=== PATIENT | female | born 1955 | race Caucasian/White ===

== ENCOUNTER 2023-11-29 23:41 | Emergency (ER) | payer MEDICARE, SELFPAY ==
[2023-11-29 23:46] VITALS: BP 157/99
[2023-11-30 01:46] VITALS: BP 153/88; BMI 18.9
--- NOTE | 2023-11-30 01:50 | ED.GENMED ---
History of Present Illness
General
Chief Complaint: Nose Bleed
Source: patient
Exam Limitations: none
Time Seen by Provider: 11/30/23 01:38
Travel History
Have you had any contact with someone who has COVID-19?: No
Do you have any symptoms of coronavirus? Fever > 100 degrees, chills, cough, shortness of breath, sore throat, loss of taste or smell, muscle aches, or headache?: No
History of Present Illness
History of Present Illness:
This is a 68 year old female that comes in with c/o nose bleed. States that she was getting ready for bed and she blow her nose. States that this was around 11:15pm and she just started with a nose bleed. States that it was just [place] and she spit
up a clot. States that a week ago she did have some congestion as she caught what her grandchildren had. Denies any fever, chills, nausea vomiting. headache, dizziness.
Past History
Past History
ED Past Medical History: Other (Crohn's disease, Bilateral hip core Decompression, Anemia, )
ED Past Surgical History: Bowel resection and Orthopedic (Right and left knee surgery. Right total knee replacement)
Social History
Tobacco: Non-smoker
Alcohol: None
Drug: None
Personal:
Living: with family
Review of Systems
Review of Systems
All Other Systems: ROS reviewed and negative except as documented in HPI and ROS
Constitutional: Reports no symptoms; Denies fever or chills
EENT: Reports other (Nasal bleeding)
Respiratory: Reports no symptoms; Denies cough
Cardiac: Reports no symptoms; Denies chest pain
ABD/GI: Reports diarrhea (Chronic); Denies abdominal pain, nausea or vomiting
: Reports no symptoms; Denies dysuria, frequency or urgency
Musculoskeletal: Reports no symptoms
Skin: Reports no symptoms
Neurological: Reports no symptoms; Denies dizzy or headache
Psychiatric: Reports no symptoms
Phy Exam
General Physical Exam
General Presentation: no apparent distress
General age: appears stated age
General Skin: warm and dry
General Habitus: normal
General Mental: alert
General Hydration: appears well hydrated
ENT Exam
ENT Exam: TM's normal, pharynx normal, neck supple and other (at this time no nasal bleeding noted. Appears that there was nasal bleeding from the left nares. )
Eye Exam
Eye Exam: EOMI
Cardiovascular Exam
Cardiovascular Exam: regular rate/rhythm, no edema and normal peripheral pulses
Pulmonary Exam
Pulmonary Exam: lungs clear, no respiratory distress, no rales, chest non tender, no crackles, no rhonchi, no wheezing and no cough
Musculoskeletal Exam
Musculoskeletal Exam: full ROM and no edema
Skin Exam
Skin Exam: normal color, warm/dry, no rash and no petechia
Psychiatric Exam
Psychiatric Exam: normal mood/affect
Course
Vital Signs
Initial and Last Documented VS:
Initial Vital Signs
Temp Pulse Resp BP Pulse Ox
98.3 F 96 20 157/99 96
11/29/23 23:46 11/29/23 23:46 11/29/23 23:46 11/29/23 23:46 11/29/23 23:46
Last Documented Vital Signs
Temp Pulse Resp BP Pulse Ox
98.3 F 88 16 153/88 96
11/29/23 23:46 11/30/23 01:46 11/30/23 01:46 11/30/23 01:46 11/30/23 01:46
MDM/Problems Addressed
Differential Diagnosis Includes:
Nasal bleeding,
MDM/Problems Addressed:
This is a 68 year old female that comes in with c/o nose bleed. States that she was getting ready for bed and blow her nose and her nose just started to bleed. States that she felt at first it was form te right side and then felt it was coming from
both.
At this time the nasal clip was removed and no bleeding noted at this time. Will watch patient and if stays stopped will discharge patient home
back into see patient. Patient has had no further nasal bleeding and there is nothing going down her throat. Explained to patient that she can use a little Vaseline on a Q-tip to help keep the nasal passages moist. Patient can follow up with the
family doctor. Return with any concerns.
Chronic conditions affecting care:
NA
Acute Exacerbation and/or Progression of Chronic Illness:
NA
*Pulse Oximetry
Patient hypoxic: no
*EKG
Interpreted by ED Provider?: NA
Rate: EKG- N/A
*It Software Developer Interpretation
Rate: It Software Developer- N/A
*Critical Care Note
Total Time (30-74mins, 75-104mins- exclusive of procedures): Not Applicable
ED Attending Note
-
Portions of this chart may have been created with voice recognition software.� Occasional wrong word or��sound alike� substitutions may have occurred due to the inherent limitations of voice recognition software.
Discharge Plan
Departure
Patient Disposition: Home (Routine Discharge)
Date of Disposition: 11/30/23
Time of Disposition: 02:23
Patient with high blood pressure during this ER visit?: Yes
Condition: Good
Covid-19: Not Applicable
Discharge Problem:
Nasal bleeding
Instructions: Nosebleeds (DC), BLOOD PRESSURE
Prescriptions:
No Action
certolizumab pegol [Cimzia] 200 MG/ML syringe kit
400 mg SC MONTHLY
multivitamin with folic acid [Tab-A-Reina] 1 TABLET tablet
1 tab PO DAILY
Vitamin B12 1,000 MCG Injection
1,000 mcg IM MONTHLY
Vitamin D2 50,000 UNITS Tab
50,000 units PO WEEKLY
acetaminophen 325 MG tablet
650 mg PO Q4H PRN (Reason: mild pain) 0RF
aspirin 325 MG tablet,delayed release (DR/EC)
325 mg PO DAILY 0RF
hydrocodone-acetaminophen 1 TABLET tablet
1 - 2 tab PO Q4HPRN PRN (Reason: moderate-severe pain) Qty: 60 0RF
ondansetron HCl 4 MG tablet
4 mg PO Q8HPRN PRN (Reason: nausea) Qty: 10 0RF
polyethylene glycol 3350 17 GRAMS powder in packet
17 grams PO DAILYPRN PRN (Reason: constipation) 0RF
azithromycin 250 MG tablet
250 mg PO DAILY Qty: 4 0RF
Activity Restrictions/Additional Instructions:
As discussed, your nasal bleeding has stopped and there is no obvious site noted. Please do not blow your nose tonight as this will dislodge any clots. You may use a Little Vaseline on a Q-tip to help keep the nasal passages moist. You may also use
Saline nasal spray to help with moistening the nasal passages. Follow up with the family doctor for recheck. Please Pinch the nostrils for any further bleeding. IF YOU HAVE INCREASED BLEEDING OR YOU HAVE ANY OTHER CONCERNS PLEASE RETURN TO THE
EMERGENCY ROOM.
Interventions
Interventions:
*Risk Screen - Suicide Last Done: 11/29/23 23:46
*General Assessment Last Done: 11/29/23 23:46
*Neglect/Abuse Screening Last Done: 11/29/23 23:46
ED- Fall Risk Assessment Last Done: 11/29/23 23:46
*ED COVID-19 Vaccine History Last Done: 11/29/23 23:46
ED-EENT Assessment Last Done: 11/30/23 01:46
Discharge Date and Time
Print Language: MALAYSIAN
== END 2023-11-30 02:42 | disposition home or self-care (01) ==
LOC: EMR 23:41
PROVIDERS: EMERGENCY PHYSICIAN Emergency Medicine; FAMILY PHYSICIAN Internal Medicine
DX: R04.0 Epistaxis (principal); R19.7 Diarrhea, unspecified; R03.0 Elevated blood-pressure reading, without diagnosis of hypertension; K50.90 Crohn's disease, unspecified, without complications; D64.9 Anemia, unspecified; Z96.651 Presence of right artificial knee joint; Z88.5 Allergy status to narcotic agent; Z88.2 Allergy status to sulfonamides; Z79.82 Long term (current) use of aspirin
CPT/HCPCS: 99282

== ENCOUNTER 2023-12-01 23:35 | Inpatient (IN) | payer MEDICARE, SELFPAY ==
[2023-12-01 18:16] VITALS: BP 148/87
[2023-12-01 18:38] LABS: % Basophils 0.7 % (0-2); % Eosinophils 0.1 % (0-6); % Immature Granulocytes 0.4 % (0-0.5); % Lymphocytes 12.4 % (20.5-51.1); % Monocytes 4.1 % (1.7-9.3); % Neutrophils 82.3 % (42.2-75.2); Absolute Basophils 0.1 10^3/uL (0-0.2); Absolute Lymphocytes 0.9 10^3/uL (1.2-3.4); Absolute Monocytes 0.3 10^3/uL (0.1-0.6); Absolute Neutrophils 5.9 10^3/uL (1.4-6.5); Hematocrit 34.3 % (37.0-47.0); Hemoglobin 11.8 g/dL (12.0-16.0); Mean Corp Hgb Conc. 34.4 g/dL (33.0-37.0); Mean Corpuscular Hgb 29.5 pg (27.0-31.0); Mean Corpuscular Volume 85.8 fL (81.0-99.0); Nucleated Red Blood Cells % 0 %; Platelet Count 213 10^3/uL (130-400); Red Cell Dist. Width 13.2 % (11.5-14.5); White Blood Cell Count 7.1 10^3/uL (4.8-10.8)
[2023-12-01 18:57] LABS: ALT (SGPT) 601 U/L (0-35); AST (SGOT) 736 U/L (14-36); Alkaline Phosphatase 165 U/L (38-126); Blood Urea Nitrogen 8 mg/dl (7-17); Calcium 9.6 mg/dl (8.4-10.2); Carbon Dioxide 29 mmol/L (22-30); Chloride 107 mmol/L (98-107); Glucose 102 mg/dl (70-99); Potassium 3.7 mmol/L (3.5-5.1); Sodium 140 mmol/L (135-145); Total Bilirubin 4.5 mg/dl (0.2-1.3); Total Protein 7.2 g/dl (6.3-8.2); eGFR > 60.00
[2023-12-01 19:12] LABS: Lipase > 4000 U/L (23-300)
--- NOTE | 2023-12-01 20:57 | ED.GENMED ---
History of Present Illness
General
Chief Complaint: Abdominal Pain
Source: patient
Time Seen by Provider: 12/01/23 20:43
Travel History
Have you had any contact with someone who has COVID-19?: No
Do you have any symptoms of coronavirus? Fever > 100 degrees, chills, cough, shortness of breath, sore throat, loss of taste or smell, muscle aches, or headache?: No
History of Present Illness
History of Present Illness:
Pt presents to the emergency room complaining of abdominal pain and nausea. Pain began yesterday and has been persistent. She has not vomited. Denies any diarrhea. Patient has a history of Crohn's disease and she did contact her GI doctor who
referred her to the emergency room. He was concerned that she may be having an exacerbation of Crohn's. Patient has had abdominal surgery and bowel resection due to Crohn's. She currently takes Stelara. She is not on any oral steroids. She
feels her pain is different than what she is experienced with Crohn's in the past. Today's pain is mostly in the upper abdomen. Does radiate to the back. She denies alcohol use.
Past History
Past History
ED Past Medical History: Other (Crohn's disease, Bilateral hip core Decompression, Anemia, )
ED Past Surgical History: Bowel resection and Orthopedic (Right and left knee surgery. Right total knee replacement)
Social History
Tobacco: Non-smoker
Alcohol: None
Drug: None
Personal:
Living: with family
Phy Exam
Physical Exam
Physical Exam:
General: Awake, Alert, Oriented X3. No acute distress.
Vitals: unremarkable
Head: Atraumatic
Eyes: Pupils equal, EOMI
Throat: Airway intact, no exudates, dry mucosa
Neck: Trachea midline
Lungs: Clear and equal b/l
Heart: Regular rate, no murmurs
Abd: Soft, tender to palpation epigastric and right upper quadrant, No pulsatile mass
Neuro: Nonfocal
Skin: Warm, dry, no rash
Extremities: pulses equal b/l, no edema
Course
Orders/Labs/Results
Orders:
Orders
12/01/23 18:20
Electrocardiogram (*1) Urgent
Reason for Study: Abdominal Pain
EKG- Treatment ONCE
12/01/23 18:32
Complete Blood Count/With Diff Urgent
Comprehensive Metabolic Panel Urgent
Lipase Urgent
12/01/23 20:51
0.9% Sodium Chloride 1000 ml [Nss] 1,000 ml IV BOLUS
Ketorolac [Toradol] 15 mg IV NOW STA
US Abdomen Complete/Upper Urgent
Comment:
Reason For Exam: ruq/epigastric abd pain, elevated lfts.
12/01/23 22:38
CefTRIAXone [Rocephin] 1,000 mg IV NOW STA
12/01/23 23:04
Admit/Transfer Patient As Directed
Co-Sign Provider:
Level of Care: Inpatient admission
Assign to:: Medical/Surgical
Physician / Group: [email or web address]
Diagnosis: acute Gallstone pancreatitis
Reason for Hospitalization: acute Gallstone pancreatitis
Expected length of stay greater than two midnights?: Yes
ELOS- Estimated Length of Stay in days: 3
I certify the patient meets the requirements for IP care: Yes
12/01/23 23:07
Code Status As Directed
Resuscitation Status: Full Code
12/01/23 23:53
HYDROmorphone [Dilaudid] 0.5 mg IV Q4HPRN PRN
Lactated Ringers [Lr] 1,000 ml IV 250 mls/hr
Ondansetron Injectable [Zofran] 4 mg IV Q6HPRN PRN
12/01/23 23:53
Consult Notification Routine
Specialty to Notify: Gastroenterology
Consult Notification Routine
Specialty to Notify: Gastroenterology
GASTROINTESTINAL CONSULT Routine
Consulting Provider: Sun Lockett
Was physician already notified: No
Reason for consult: acute Gallstone pancreatitis, mild CBD dilatation
Activity As Directed
Activity Level: With Assistance
Intake/ Output As Directed
Frequency: Per unit guidelines
Vital Signs As Directed
Frequency: Per unit guidelines
Weight As Directed
Frequency: Daily
DX Deep Vein Thrombosis Video Routine
12/02/23 Breakfast
NPO
Allow oral meds: No
Allow clear liquids: No
NPO with Ice Chips: Yes
Complete Blood Count/No Diff IN AM
Comprehensive Metabolic Panel IN AM
Lipase IN AM
Mrcp Without MR [MR Mrcp Without] IN AM
Comment: include MRI of abdomen
Reason For Exam: Acute Gallstone pancreatitis,Mild CBD diltation
Recent pill cam endoscopy?: No
12/02/23 08:00
cycloSPORINE [Restasis 0.05% Ophthalmic Emulsion] 1 drops BOTH EYES BID
12/02/23 18:00
Enoxaparin Sodium [Lovenox] 40 mg SC QPM
12/03/23 06:00
Comprehensive Metabolic Panel IN AM
Lipase IN AM
12/04/23 06:00
Comprehensive Metabolic Panel IN AM
Lipase IN AM
Abnormal Lab Results
12/01/23
18:32
RBC 4.00 L 10^6/uL
(4.20-5.40)
Hgb 11.8 L g/dL
(12.0-16.0)
Hct 34.3 L %
(37.0-47.0)
Absolute Lymphs (auto) 0.9 L 10^3/uL
(1.2-3.4)
Neutrophils % 82.3 H %
(42.2-75.2)
Lymphocytes % 12.4 L %
(20.5-51.1)
Glucose 102 H mg/dl
(70-99)
Total Bilirubin 4.5 H mg/dl
(0.2-1.3)
AST 736 H* U/L
(14-36)
ALT 601 H* U/L
(0-35)
Alkaline Phosphatase 165 H U/L
(38-126)
Lipase > 4000 H* U/L
(23-300)
12/01/23 18:32
12/01/23 18:32
Vital Signs
Initial and Last Documented VS:
Initial Vital Signs
Temp Pulse Resp BP Pulse Ox
98.8 F 87 20 148/87 97
12/01/23 18:16 12/01/23 18:16 12/01/23 18:16 12/01/23 18:16 12/01/23 18:16
Last Documented Vital Signs
Temp Pulse Resp BP Pulse Ox
99.1 F 86 18 151/93 95
12/01/23 22:40 12/01/23 22:40 12/01/23 22:40 12/01/23 22:40 12/01/23 22:40
MDM/Problems Addressed
Differential Diagnosis Includes:
Acute pancreatitis, cholecystitis, colitis, intra-abdominal abscess
MDM/Problems Addressed:
Patient presents with abdominal pain. Labs show elevated lipase and LFTs. Suspect gallstone pancreatitis.
Ultrasound shows stones in the gallbladder with some mild gallbladder wall thickening. Common bile duct is larger than expected. Patient will require hospitalization for suspected choledocholithiasis. Will keep NPO. Dose of ceftriaxone provided.
Chronic conditions affecting care: Other (Crohn's disease)
*Radiology
Radiology exam reviewed: radiology read reviewed
*Pulse Oximetry
Patient hypoxic: no
*EKG
Interpreted by ED Provider?: Yes
Interpretation: normal
Heart Rate: 82
Rate: normal
Rhythm: sinus
[place]: normal axis
Interval: normal interval
QRS Pattern: normal QRS
Ischemia: no ischemia
*Critical Care Note
Total Time (30-74mins, 75-104mins- exclusive of procedures): Not Applicable
Patient Management
Social determinants of health affecting care: Strong social support
ED Attending Note
-
Portions of this chart may have been created with voice recognition software.� Occasional wrong word or��sound alike� substitutions may have occurred due to the inherent limitations of voice recognition software.
Discharge Plan
Departure
Patient Disposition: Admit
Date of Disposition: 12/01/23
Time of Disposition: 22:40
Admit to: Med/Surg
Presentation/result/management discussed w/ accepting MD/DO: Hospitalist
Condition: Fair
Discharge Problem:
Acute pancreatitis, Cholelithiasis
Interventions
Interventions:
*Risk Screen - Suicide Last Done: 12/01/23 18:16
*General Assessment Last Done: 12/01/23 18:16
*Neglect/Abuse Screening Last Done: 12/01/23 18:16
ED- Fall Risk Assessment Last Done: 12/01/23 21:40
*ED COVID-19 Vaccine History Last Done: 12/01/23 23:26
PM-Mjecmz-Fahphrvtbk Assessment Last Done: 12/01/23 21:40
[2023-12-01] MEDS: TORADOL 15 MG IV (21:24)
[2023-12-01] MEDS: NSS 1000 IV (21:25)
[2023-12-01 21:39] VITALS: BMI 20.5
[2023-12-01 22:40] VITALS: BP 151/93
--- NOTE | 2023-12-01 22:56 | HPS.HSE ---
Family Physician
-
Family Physician: Lauren Rush
Chief Complaint
-
abdominal pain
History of Present Illness
68F HX Crohn's disease seen at ER for abdomina pain
Abdominal pain mostly in upper abdomen with radition to the back
Pain is different from prior Crohn flare
Acute onset since yesterday
Associated with N/V
No relieving or exacerbating factors
Prior HX pancreatitis once associated with TPN
HX Bowel resection due to Crohn dz
Denied ETOH exposure
Medical History
Past Medical History
Past Medical History: Reports Other
Additional Past Medical History:
Crohn's disease,
Bilateral hip core Decompression
Anemia,
Past Surgical History: Reports Orthopedic (Right and left knee surgery. Right total knee replacement)
Additional Past Surgical History:
HX Bowel resection due to Crohn dz
Social History
Tobacco: Non-smoker
Alcohol: None
Drug: None
Personal:
Living: With Family
Family History
Family History: Not pertinent
Allergies / Home Medications
Allergies reflects when Allergies were last updated in [facility].
Home Medications with original date entered in [facility]
Allergy/Medication List:
Allergies
Allergy/AdvReac Type Severity Reaction Status Date / Time
Sulfa (Sulfonamide Allergy Unknown Verified 12/01/23 18:19
Antibiotics)
sulfasalazine Allergy hemolyzed Verified 12/01/23 18:19
blood
codeine AdvReac Severe Verified 12/01/23 18:19
nausea,
vomiting
Home Medications
multivitamin with folic acid 400 mcg tablet (Tab-A-Reina) 1 tab PO DAILY PRN supplement 06/30/17
ascorbic acid (vitamin C) 500 mg chewable tablet (Vitamin C) 500 mg PO DAILY PRN supplement 12/01/23
biotin 1,000 mcg chewable tablet 1,000 mcg PO DAILY PRN supplement 12/01/23
cyanocobalamin (vitamin B-12) 1,000 mcg/mL injection solution 1,000 mcg SC Q2W 12/01/23
cyclosporine 0.05 % eye drops in a dropperette 1 drp BOTH EYES BID 12/01/23
ustekinumab 45 mg/0.5 mL subcutaneous solution (Stelara) 45 mg SC [id number] 12/01/23
Review of Systems
-
Constitutional: Reports No Symptoms
EENT: Reports No Symptoms
Respiratory: Reports No Symptoms
Cardiac: Reports No Symptoms
Abdomen/GI: Reports See HPI, Abdominal Pain, Nausea and Vomiting; Denies Diarrhea
: Reports No Symptoms
Musculoskeletal: Reports No Symptoms
Skin: Reports No Symptoms
Neurological: Reports No Symptoms
Endocrine: Reports No Symptoms
Hematologic/Lymphatic: Reports No Symptoms
Psych: Reports No Symptoms
Physical Exam
Vital Signs
Vital Signs
Temp Pulse Resp BP Pulse Ox
99.1 F 86 18 151/93 95
12/01/23 22:40 12/01/23 22:40 12/01/23 22:40 12/01/23 22:40 12/01/23 22:40
Physical Exam
General: No Apparent Distress and Comfortable
HEENT: NormoCephalic, Moist mucous membranes and Atraumatic
Respiratory: Clear
Cardiac: S1/S2 and Regular Rhythm; No Tachycardia or Murmur
Breast: Deferred by me
GI: Soft, Normal Bowel Sounds and Tender (at epigastriun and RUQ abdomen )
Rectal: Deferred by Provider
Genito-urinary: Deferred by me
Musculoskeletal: No Edema
Skin: Warm and Dry
Neuro: AO x 3
Psych: Calm
Laboratory Results
-
12/01/23 18:32
12/01/23 18:32
Laboratory Results
Total Bilirubin 4.5 mg/dl (0.2-1.3) H 12/01/23 18:32
AST 736 U/L (14-36) H* 12/01/23 18:32
ALT 601 U/L (0-35) H* 12/01/23 18:32
Alkaline Phosphatase 165 U/L (38-126) H 12/01/23 18:32
Lipase > 4000 U/L (23-300) H* 12/01/23 18:32
Data Reviewed
-
Ultrasound: Report Reviewed by me
Lab Data: Labs Reviewed by me
Impression/Plan
-
Reviewed VS: afebrile, unremarkable
Data
WCC 7.1
Hgb 11.8 - stable around 11s
nl BMP
TB 4.5
AST 736
ALT 601
AKP 165
Lipase > 4000
US Abdomen Complete/Upper
- Cholelithiasis.
- The GB wall is mildly thickened and the patient has a mildly positive sonographic Goodrich's sign, findings suggestive of acute cholecystitis.
- Moderate diffuse intrahepatic bile duct dilation. The common bile duct is mildly dilated. No sonographic evidence for bile duct calculus. If further imaging evaluation is desired, consideration for MRI of the abdomen/MRCP.
- Somewhat limited visualization of the liver. No evidence of a focal hepatic lesion.
EKG report
NORMAL SINUS RHYTHM
NORMAL ECG
WHEN COMPARED WITH ECG OF 14-NOV-2018 13:14,
NO SIGNIFICANT CHANGE WAS FOUND
ASSESSMENT & PLAN
Acute Gallstone pancreatitis
Sono suggestive of acute cholecystitis.
Mild CBD dictation and diffuse intrahepatic bile duct dilation
Cholelithiasis
Prior HX pancreatitis once associated with TPN
- Afebrile , nl WCC
- s/p IV CFTZ at ER - will hold off ABx till further eval by GI in AM
- Elevate TB , Elevated Transaminitis
- Lipase > 4000
- NPO and LR IVF
- IV Dilaudid PRN
- Trend WCC, LFTs and Lipase
- MRCP in AM
- GI consult
HX Crohn dz
Currently takes Stelara
DVT Px: SCD
Code: Full
IP MS
[2023-12-01] MEDS: ROCEPHIN 1000 MG IV (23:00)
[2023-12-02] VITALS (11 sets, daily range): BP systolic 136–178; BP diastolic 82–93
[2023-12-02] MEDS: LR 1000 IV ×4 (00:35→16:56)
[2023-12-02 05:16] LABS: Hematocrit 28.9 % (37.0-47.0); Hemoglobin 9.8 g/dL (12.0-16.0); Mean Corp Hgb Conc. 33.9 g/dL (33.0-37.0); Mean Corpuscular Hgb 30.2 pg (27.0-31.0); Mean Corpuscular Volume 88.9 fL (81.0-99.0); Mean Platelet Volume 9.7 fL (7.4-10.4); Platelet Count 193 10^3/uL (130-400); Red Blood Cell Count 3.25 10^6/uL (4.20-5.40); Red Cell Dist. Width 13.3 % (11.5-14.5)
[2023-12-02 05:48] LABS: ALT (SGPT) 386 U/L (0-35); AST (SGOT) 358 U/L (14-36); Alkaline Phosphatase 170 U/L (38-126); Blood Urea Nitrogen 9 mg/dl (7-17); Calcium 8.9 mg/dl (8.4-10.2); Carbon Dioxide 23 mmol/L (22-30); Chloride 109 mmol/L (98-107); Estimated Creatinine Clearance 69 ml/min; Glucose 59 mg/dl (70-99); Potassium 3.5 mmol/L (3.5-5.1); Sodium 138 mmol/L (135-145); Total Bilirubin 3.7 mg/dl (0.2-1.3); Total Protein 5.7 g/dl (6.3-8.2); eGFR > 60.00
[2023-12-02 06:02] LABS: Lipase 2346 U/L (23-300)
--- NOTE | 2023-12-02 07:49 | CON.GI ---
Addendum entered and electronically signed by Sun Lockett MD 12/02/23 15:01:
I saw and examined the patient.
The PUBLIC HEALTH WORKER or PA's note was reviewed and I agree with the note.
Comment: 68-year-old female past medical history Crohn's disease status post surgery on Stelara follows at [facility] here today with abdominal pain found to have gallstone pancreatitis and acute cholecystitis. Pain is improved already last time
needed pain meds was 6 AM. Underwent MRI reviewed which showed choledocholithiasis in addition to cholelithiasis and acute cholecystitis. Plan for ERCP today. Discussed with patient risk, alternatives, benefits including but not limited to
bleeding, infection, perforation, pancreatitis. Discussed with the ERCP team plan ERCP today. Continue antibiotics for acute cholecystitis. Appreciate surgical input. Further recommendations pending ERCP. With pancreatitis, recommend IV fluids,
monitor I's and O's. Of note, patient at increased risk of gallstones given her history of Crohn's and surgeries.
Addendum entered and electronically signed by Elaine Kimbrough NP 12/02/23 12:45:
ADDEDNUM: Gallstone pancreatitis 2/2 choledocholithiasis. MRI/MCRP showing +choledocho and acute cholecystitis. Reviewed with Dr. Lockett, to arrange for ERCP today v tomorrow.
Original Note:
Consultation
-
Date/Time Consultation Requested: 12/01/23 @ 23:53
Date/Time Consultation Performed: 12/02/23 @ 08:15
Requesting Provider: Dr. Shelby
Performing Provider: YAYA Mckeon; Dr. Janis Lockett
Reason for Consultation: acute Gallstone pancreatitis, mild CBD dilatation
Medical History
Chief Complaint / HPI
Chief Complaint: abdominal pain
History of Present Illness:
The patient is a 68-year-old female with a past medical history significant for Crohn's disease on Stelara with hx of multiple small bowel obstructions and small bowel resections, colon resection, history of pancreatitis secondary to TPN, chronic
anemia, avascular necrosis with core decompression, who presented to the emergency room with complaints of abdominal pain. We are being asked to evaluate for gallstone pancreatitis with biliary ductal dilation. The patient reports that she
developed abdominal pain on Thursday in the late morning time. She notes she has had similar pain in the past times of the past year, but each time the pain would dissipate on its own. She notes that over the summer she had been diagnosed with
SIBO and taken Xifaxan but stopped after several days that she had the similar pain. She notes this time that the pain was constant and did not resolve. She admits to discomfort in the mid upper abdomen. She also admits to associated nausea
without vomiting. She otherwise denies any fevers, chills, chest pain, shortness of breath, melena, hematochezia, hematemesis, unintentional weight loss, or loss of appetite. She does have chronic diarrhea with 2 bowel movements daily secondary to
multiple bowel resections from her Crohn's disease. She notes she was diagnosed at age 16, currently is on Stelara which she did miss her dose yesterday due to feeling unwell. She is followed with Dr. Garcia at [facility], [place] but is looking for a new
GI physician. She had previously seen him in the office and he had ordered Questran but she did not start this. She denies prior history of gallbladder disease. She denies any history of liver disease. She does note that she did have
pancreatitis once in 1990 after being on TPN. She reports her current symptoms are essentially controlled on Stelara. Her last bowel surgery was in 2017. She denies any recent hospitalizations, recent steroids, or recent surgeries. She notes
that she is intolerant of steroids due to history of avascular necrosis with core decompression. Her last colonoscopy was about 4 years ago. She denies any family history of GI cancers or disorders. Ultrasound imaging was done showing concern for
acute cholecystitis with cholelithiasis and moderate diffuse intrahepatic biliary ductal dilation and mild dilation of the common bile duct, concerning for choledocholithiasis. Routine labs showed a hemoglobin 11.8, WBC 7.1, total bilirubin 4.5,
AST 736, ALT 61, alk phos 165, lipase greater than 4000, BUN 8, creatinine 0.7, potassium 3.7, sodium 140. She was started on IV fluids, made n.p.o., admitted for further evaluation by GI. MRI with MRCP is pending this morning.
Past Medical History
Past Medical History: Other (Crohn's disease on Stelara, chronic anemia, avascular necrosis with core decompression, history of small bowel obstruction with small bowel resection)
Past Surgical History: Bowel Resection (Multiple small bowel resections, colon resections secondary to Crohn's disease) and Orthopedic (Bilateral knee arthroscopy, right total knee replacement)
Social History
Tobacco: Non-Smoker
Alcohol: None
Drug: None
Personal:
Living: With Family
Family History
Family History: Reviewed & Not Pertinent
Allergies / Home Medications
Allergy/AdvReac Type Severity Reaction Status Date / Time
Sulfa (Sulfonamide Allergy Unknown Verified 12/01/23 18:19
Antibiotics)
sulfasalazine Allergy hemolyzed Verified 12/01/23 18:19
blood
codeine AdvReac Severe Verified 12/01/23 18:19
nausea,
vomiting
�Medication �Instructions �Recorded
multivitamin with folic acid 400 1 tab PO DAILY PRN supplement 06/30/17
mcg tablet (Tab-A-Reina)
ascorbic acid (vitamin C) 500 mg 500 mg PO DAILY PRN supplement 12/01/23
chewable tablet (Vitamin C)
biotin 1,000 mcg chewable tablet 1,000 mcg PO DAILY PRN supplement 12/01/23
cyanocobalamin (vitamin B-12) 1,000 mcg SC Q2W 12/01/23
1,000 mcg/mL injection solution
cyclosporine 0.05 % eye drops in a 1 drp BOTH EYES BID 12/01/23
dropperette
ustekinumab 45 mg/0.5 mL 45 mg SC [id number] 12/01/23
subcutaneous solution (Stelara)
Review of Systems
-
History Source: Patient
Constitutional: Reports No Symptoms
Respiratory: Reports No Symptoms
Cardiac: Reports No Symptoms
Abdomen/GI: Reports Abdominal Pain, Nausea and Diarrhea (Chronic)
: Reports No Symptoms
Musculoskeletal: Reports No Symptoms
Skin: Reports No Symptoms
Neurological: Reports No Symptoms
Vital Signs
Temp Pulse Resp BP Pulse Ox
99.1 F 86 18 151/93 95
12/01/23 22:40 12/01/23 22:40 12/01/23 22:40 12/01/23 22:40 12/01/23 22:40
Physical Exam
Exam
General: Well Developed, Well Nourished, No Apparent Distress and Other (Thin appearing female)
HEENT: Normocephalic, Anicteric and Atraumatic
Respiratory: Clear
Cardiac: S1/S2 and Regular Rhythm
GI: Soft, Non Distended, Normal Bowel Sounds and Tender (Minimally tender to the mid upper abdomen)
Rectal: Deferred by Provider
Musculoskeletal: No Edema
Skin: Warm and Dry
Neuro: Awake, Alert and Oriented
Psych: Calm
Results
WBC 6.0 10^3/uL (4.8-10.8) 12/02/23 05:10
Hgb 9.8 g/dL (12.0-16.0) L 12/02/23 05:10
Hct 28.9 % (37.0-47.0) L 12/02/23 05:10
MCV 88.9 fL (81.0-99.0) 12/02/23 05:10
Plt Count 193 10^3/uL (130-400) 12/02/23 05:10
Absolute Neuts (auto) 5.9 10^3/uL (1.4-6.5) 12/01/23 18:32
Sodium 138 mmol/L (135-145) 12/02/23 05:10
Potassium 3.5 mmol/L (3.5-5.1) 12/02/23 05:10
Chloride 109 mmol/L (98-107) H 12/02/23 05:10
Carbon Dioxide 23 mmol/L (22-30) 12/02/23 05:10
BUN 9 mg/dl (7-17) 12/02/23 05:10
Creatinine 0.5 mg/dL (0.6-1.0) L 12/02/23 05:10
Calcium 8.9 mg/dl (8.4-10.2) 12/02/23 05:10
Total Bilirubin 3.7 mg/dl (0.2-1.3) H 12/02/23 05:10
AST 358 U/L (14-36) H 12/02/23 05:10
ALT 386 U/L (0-35) H 12/02/23 05:10
Alkaline Phosphatase 170 U/L (38-126) H 12/02/23 05:10
Lipase 2346 U/L (23-300) H* 12/02/23 05:10
Diagnostic Image Results:
12/02/2023 US abdomen: IMPRESSION: 'Cholelithiasis. The gallbladder wall is mildly thickened and the patient has a mildly positive sonographic Goodrich's sign, findings suggestive of acute cholecystitis. Moderate diffuse intrahepatic bile duct dilation.
The common bile duct is mildly dilated. No sonographic evidence for bile duct calculus. If further imaging evaluation is desired, consideration for MRI of the abdomen/MRCP. Somewhat limited visualization of the liver. No evidence of a focal hepatic
lesion. '
Prior GI Procedures:
EGD: none on file
Colonoscopy: About [address] [facility]
Assessment / Plan
-
The patient is a 68-year-old female with a past medical history significant for Crohn's disease on Stelara with hx of multiple small bowel obstructions and small bowel resections, colon resection, history of pancreatitis secondary to TPN, chronic
anemia, avascular necrosis with core decompression, who presented to the emergency room with complaints of abdominal pain. We are being asked to evaluate for gallstone pancreatitis with biliary ductal dilation. She notes several episodes of
similar abdominal pain over the past year, but worsening and not resolving. Found to have elevated LFTs with a total bilirubin 4.5, AST 736, ALT 61, alk phos 165, and lipase greater than 4000 consistent with pancreatitis. Ultrasound imaging did
reveal gallstones with intrahepatic biliary ductal dilation along with mild dilation of the common bile duct concerning for choledocholithiasis. Imaging also suggestive of acute cholecystitis. Currently her pain has improved. She was started on
IV fluids and IV Zosyn. Pending MRI with MRCP this morning.
Problem list:
-Upper abdominal pain
-Ultrasound imaging showing gallstones, biliary ductal dilation of IHD and CBD, ?Acute cholecystitis
-Abnormal LFTs
-History of Crohn's disease on Stelara, with multiple small bowel and colonic resections, dx age 16
-History of pancreatitis secondary to TPN
Other pertinent medical history:
-Avascular necrosis with core decompression
-Chronic anemia
Recommendations:
-Etiology of abdominal pain and abnormal LFTs likely secondary to choledocholithiasis versus acute cholecystitis versus other.
-Agree with MRI with MRCP for further evaluation. If positive will need ERCP for stone extraction.
-Continue n.p.o. pending MRI
-IV fluids with LR at 150 cc/h
-PRN analgesics
-Eventual general surgery evaluation for cholecystectomy
-Trend LFTs
-Antibiotics initiated by hospitalist with Zosyn
-Will review with Dr. Lockett on when would be appropriate for her to continue her Stelara. Noted she is intolerant of steroids due to hx avascular necrosis.
-Will follow
-
-
Thank you for consultation and allowing me to participate in the patient's care. Please call the international controller GI physician during the after hours with any questions or concerns.
--- NOTE | 2023-12-02 08:03 | W.PN.HOSP.TC ---
Today's Communication/Plan
-
NPO. IV fluids. IV antibiotics. GI and surgery consulted.
Assessment / Plan
Assessment / Plan
Physical exam:
General: Acutely ill
HEENT: Normocephalic, Atraumatic and Moist Mucous Membranes
Respiratory: Clear to Auscultation; Negative Wheezes, Rales or Rhonchi
Cardiac: Regular Rhythm and S1/S2
GI: Soft, Tender in epigastric and right upper quadrant area and Nondistended
Musculoskeletal: No Clubbing, No Cyanosis and No Edema
Neuro: Awake, Alert and Oriented
Psych: Calm
A/P:
Acute gallstone pancreatitis:
-N.p.o.
-IV fluids
-Trend LFTs and lipase
-GI consult
-Reviewed abdominal ultrasound
Cholelithiasis and concerns for choledocholithiasis and cholecystitis:
-Will start on IV antibiotics, IV Zosyn
-Plan for MRCP today
-Surgery consult
-Pain control
-IV fluids
-Keep n.p.o.
History of Crohn's:
-Patient on Stelara as outpatient
DVT prophylaxis
Lovenox SQ
CODE STATUS
Full code
Total time spent on today's encounter was 52 minutes which included time spent in counseling the patient/family regarding diagnosis and treatment plan as listed above, goals of care, and symptom management. Case was discussed with nursing staff,
specialists, and care coordinators/case management. All labs and imaging personally reviewed by me. Remainder the time spent in detailed review of previous records, lab data, imaging, and other medical provider documentation.
Anticipated Discharge: > 48 hours
Subjective/Interval History
-
Date of Service: December 02, 2023
Patient still complains of abdominal pain although overall much better than before. Denies any nausea or vomiting.
Objective Data
-
Labs:
Laboratory Results
12/02/23
05:10
WBC 6.0
Hgb 9.8 L
Hct 28.9 L
Plt Count 193
Sodium 138
Potassium 3.5
Chloride 109 H
Carbon Dioxide 23
BUN 9
Creatinine 0.5 L
Glucose 59 L
Calcium 8.9
Total Bilirubin 3.7 H
AST 358 H
ALT 386 H
Alkaline Phosphatase 170 H
Vital Signs:
Vital Signs
Temp Pulse Resp BP Pulse Ox
99.1 F 86 18 151/93 95
12/01/23 22:40 12/01/23 22:40 12/01/23 22:40 12/01/23 22:40 12/01/23 22:40
Review of Systems
-
All other systems: Reviewed and negative
[2023-12-02] MEDS: RESTASIS 0.05% OPHTHALMIC EMULSION 1 DROPS BOTH EYES ×2 (09:37→21:35)
[2023-12-02] MEDS: ZOSYN 50 IV ×3 (10:33→21:34)
--- NOTE | 2023-12-02 11:44 | CON.GS ---
Consultation
-
Requesting Provider: Elsa
Performing Provider: Joanna
Reason for Consultation: Biliary pancreatitis
Medical History
-
Chief Complaint: Abd pain
History of Present Illness:
68F with acute onset epigastric pain that began for the past two days. Endorses mild nausea, denies vomiting, denies f/c, denies changes to stool/urine. Pain is better today than yesterday. Pain feels diffrent than her Crohns pain. She takes
stellara for crohns.
Past Medical History
Past Medical History: Other (Crohn's disease on Stelara, chronic anemia, avascular necrosis with core decompression)
Past Surgical History: Bowel Resection (multiple bowel resections), Orthopedic (right TKA) and Other
Social History
Tobacco: Non-Smoker
Alcohol: None
Drug: None
Personal:
Living: With Family
Family History
Family History: Reviewed & Noncontributory
Allergies / Home Medications
Allergy/AdvReac Type Severity Reaction Status Date / Time
Sulfa (Sulfonamide Allergy Unknown Verified 12/01/23 18:19
Antibiotics)
sulfasalazine Allergy hemolyzed Verified 12/01/23 18:19
blood
codeine AdvReac Severe Verified 12/01/23 18:19
nausea,
vomiting
�Medication �Instructions �Recorded �Confirmed �Type
multivitamin with folic acid 400 1 tab PO DAILY PRN supplement 06/30/17 12/01/23 History
mcg tablet (Tab-A-Reina)
ascorbic acid (vitamin C) 500 mg 500 mg PO DAILY PRN supplement 12/01/23 12/01/23 History
chewable tablet (Vitamin C)
biotin 1,000 mcg chewable tablet 1,000 mcg PO DAILY PRN supplement 12/01/23 12/01/23 History
cyanocobalamin (vitamin B-12) 1,000 mcg SC Q2W 12/01/23 12/01/23 History
1,000 mcg/mL injection solution
cyclosporine 0.05 % eye drops in a 1 drp BOTH EYES BID 12/01/23 12/01/23 History
dropperette
ustekinumab 45 mg/0.5 mL 45 mg SC [id number] 12/01/23 12/01/23 History
subcutaneous solution (Stelara)
Review of Systems
-
A 10 point review of systems was completed, and was negative except as per HPI.
Physical Exam
Vital Signs
Temp Pulse Resp BP Pulse Ox
98.6 F 83 16 143/85 95
12/02/23 08:30 12/02/23 08:30 12/02/23 08:30 12/02/23 08:30 12/02/23 08:38
12/01/23 12/02/23 12/03/23
06:59 06:59 06:59
Actual Weight 47.9 kg
Body Mass Index (BMI) 20.0
Lab Results
12/02/23 05:10
12/02/23 05:10
WBC 6.0 10^3/uL (4.8-10.8) 12/02/23 05:10
Hgb 9.8 g/dL (12.0-16.0) L 12/02/23 05:10
Hct 28.9 % (37.0-47.0) L 12/02/23 05:10
Plt Count 193 10^3/uL (130-400) 12/02/23 05:10
Abs Immat Gran (auto) 0.0 10^3/uL (0-0.05) 12/01/23 18:32
Neutrophils % 82.3 % (42.2-75.2) H 12/01/23 18:32
Physical Exam
General: Well Developed, Well Nourished and No Apparent Distress
HEENT: Normocephalic and Anicteric
GI: Soft, Non Distended and Tender (mild ttp to epigastrium)
Skin: Warm and Dry
Neuro: AO x 3
Psych: Calm
Data Reviewed
-
Ultrasound: Image Personally Visualized and interpreted, Report Reviewed by me, Discussed with Patient and Discussed with Family
Labs: Labs Reviewed by me
Old Records: Reviewed
Assessment / Plan
-
68F with biliary pancreatitis
AFVSS, tenderness improved today
No leukocytosis
LFTs elevated, trending down
US with stones, no GBWT or PCF, CBD not dilated but intra-hepatic dilation is noted
-Agree with MRCP
-If choledocholithiasis identified, will benefit from ERCP
-Eventual CCY, timing TBD
-Will follow
--- NOTE | 2023-12-02 15:01 | W.PN.UPDATE ---
Update Note
Progress Note Update
billing purposes
--- NOTE | 2023-12-02 16:16 | W.PN.UPDATE ---
Update Note
Progress Note Update
I updated patient's about the procedure findings
[2023-12-02] MEDS: ZOFRAN 4 MG IV (16:44)
[2023-12-02] MEDS: COMPAZINE 5 MG IV (17:02)
[2023-12-02] MEDS: LOVENOX 40 MG SC (18:10)
[2023-12-03] VITALS (14 sets, daily range): BP systolic 125–170; BP diastolic 60–98; BMI 20.1
--- NOTE | 2023-12-03 00:49 | PTCARENOTE ---
Addendum entered by Marilia Hallman RN 12/03/23 00:53:
VSS. LR going at 150mls/hr into RAC.
Original Note:
Pt aaox3 but drowsy from anesthesia. Pt able to hold a conversation with staff. Pt and pt's stated it takes her a long time to 'get back to normal' after anesthesia. Pt placed on purewick d/t frequency from IV fluids. Call muir within reach.
Plan of care ongoing.
[2023-12-03] MEDS: LR 1000 IV ×2 (01:49→10:39)
[2023-12-03] MEDS: ZOSYN 50 IV ×4 (04:10→21:29)
--- NOTE | 2023-12-03 08:18 | W.PN.HOSP.TC ---
Today's Communication/Plan
-
IV fluids. NPO. IV antibiotics. Plan for cholecystectomy today
Assessment / Plan
Assessment / Plan
Physical exam:
General: Acutely ill
HEENT: Normocephalic, Atraumatic and Moist Mucous Membranes
Respiratory: Clear to Auscultation; Negative Wheezes, Rales or Rhonchi
Cardiac: Regular Rhythm and S1/S2
GI: Soft, Tender in epigastric and right upper quadrant area and Nondistended
Musculoskeletal: No Clubbing, No Cyanosis and No Edema
Neuro: Awake, Alert and Oriented
Psych: Calm
ERCP on 12/01:
Impression: - The major papilla appeared normal.
- The common bile duct was dilated.
- Choledocholithiasis was found. Complete removal was
accomplished by biliary sphincterotomy and balloon
extraction.
- A biliary sphincterotomy was performed.
- The biliary tree was swept.
A/P:
Acute gallstone pancreatitis:
-N.p.o.
-IV fluids
-Trend LFTs and lipase--> LFT trending down and lipase back to normal.
-GI consult appreciated status post ERCP and stone extraction. See report above.
-Reviewed abdominal ultrasound
-Discussed with family at bedside today on 12/02
-Plan for cholecystectomy later today
Cholelithiasis and concerns for choledocholithiasis and cholecystitis:
-Will cont on IV antibiotics, IV Zosyn
-Status post MRCP with choledocholithiasis and acute cholecystitis.
-Surgery consulted-->will require cholecystectomy but will defer to surgery for timing--> it appears plan for cholecystectomy later today
-Pain control
-IV fluids
-Keep n.p.o.
Mild metabolic acidosis:
-Repeat BMP in a.m. but watch closely
History of Crohn's:
-Patient on Stelara as outpatient
DVT prophylaxis
Lovenox SQ--> change to SCD
CODE STATUS
Full code
Anticipated Discharge: 24 - 48 hours
Subjective/Interval History
-
Date of Service: December 03, 2023
Patient improving in terms of her abdominal discomfort. No nausea or vomiting. Afebrile
Objective Data
-
Labs:
Laboratory Results
12/03/23
06:00
WBC Pending
Hgb Pending
Hct Pending
Plt Count Pending
Sodium Pending
Potassium Pending
Chloride Pending
Carbon Dioxide Pending
BUN Pending
Creatinine Pending
Glucose Pending
Calcium Pending
Total Bilirubin Pending
AST Pending
ALT Pending
Alkaline Phosphatase Pending
Vital Signs:
Vital Signs
Temp Pulse Resp BP Pulse Ox
97.4 F 72 18 130/77 93
12/03/23 07:00 12/03/23 07:00 12/03/23 07:00 12/03/23 07:00 12/03/23 07:00
I&O
12/02/23 12/03/23 12/04/23
06:59 06:59 06:59
Intake Total 420 / 420
Output Total 1100 / 1100
Balance -680 / -680
--- NOTE | 2023-12-03 08:48 | W.PN.GS2 ---
Today's Communication / Plan
-
1
Assessment / Plan
-
Assessment: 68-year-old female who presented with gallstone mediated pancreatitis and choledocholithiasis. Gallstones also confirmed within the gallbladder on imaging studies. History of Crohn's disease with multiple laparotomies and repeat bowel
resections (ileocecectomy, resection of anastomotic stricture on 2 separate occasions most recently 2017 at outside hospital)
Status post ERCP 11/01/23
Reviewed with patient indications for cholecystectomy. Reviewed patient's MRI. There appears to be a potential window in the right upper quadrant to proceed with laparoscopic cholecystectomy however I discussed with the patient she would be at
higher risk for possible open cholecystectomy given her extensive abdominal surgical history and bowel resections for management of Crohn's disease. She is in agreement to proceed with cholecystectomy for definitive management of her gallstone
mediated complications.
Laparoscopic cholecystectomy possible open was reviewed in detail including the operative technique, alternative treatment options, benefits and potential risks such as but not limited to bleeding, infectious or wound related complications,
conversion to open, iatrogenic injury to surrounding viscera particularly as it may relate to adhesiolysis and scar tissue from her prior history of laparotomies, common bile duct injury, bile leak and change in bowel habits postcholecystectomy.
Any of the patient's concerns or questions were fully addressed and informed consent was obtained.
Plan: Patient has been added onto the OR schedule today for cholecystectomy
Subjective Data
-
Date of Service: December 03, 2023
Patient seen and examined.
She is experiencing some heartburn indigestion this morning/since the early a.m.
No abdominal pain in the right upper quadrant or radiating to the back/shoulder region
No nausea, no vomiting
Objective Data
-
Intake and Output
12/02/23 12/03/23 12/04/23
06:59 06:59 06:59
Intake Total 420 / 420
Output Total 1100 / 1100
Balance -680 / -680
Intake:
Oral fluids 120 / 120
IV fluids (Total) 300 / 300
LR 300 / 300
Output:
Urine, Voided 1100 / 1100
Other:
Number of unmeasured voidings 2
Number of approximated LARGE 2
amounts of urine
Vital Signs
Temp Pulse Resp BP Pulse Ox
97.4 F 72 18 130/77 93
12/03/23 07:00 12/03/23 07:00 12/03/23 07:00 12/03/23 07:00 12/03/23 07:00
Calcium 8.9 mg/dl (8.4-10.2) 12/02/23 05:10
Total Bilirubin 3.7 mg/dl (0.2-1.3) H 12/02/23 05:10
AST 358 U/L (14-36) H 12/02/23 05:10
ALT 386 U/L (0-35) H 12/02/23 05:10
Alkaline Phosphatase 170 U/L (38-126) H 12/02/23 05:10
Total Protein 5.7 g/dl (6.3-8.2) L D 12/02/23 05:10
Albumin 3.0 g/dl (3.5-5.0) L 12/02/23 05:10
Physical Exam
-
NAD AAOx3
ABD: Soft, nondistended, nontender on palpation. Multiple abdominal surgical scars including right paramedian and periumbilical.
--- NOTE | 2023-12-03 09:06 | W.PN.GI.CBS2 ---
Addendum entered and electronically signed by Sun Lockett MD 12/03/23 13:42:
Pt in OR unable to see.
GI will sign off please call with ?s.
Original Note:
Today's Communication / Plan
-
s/p ERCP with stone removal pain improved
for thelma today
repeat LFT's and lipase improving
NPO
family updated
discussed waiting 1 week for restart of Sterala as due this week
remains on IV Zosyn
Assessment / Plan
-
The patient is a 68-year-old female with a past medical history significant for Crohn's disease on Stelara with hx of multiple small bowel obstructions and small bowel resections, colon resection, history of pancreatitis secondary to TPN, chronic
anemia, avascular necrosis with core decompression, who presented to the emergency room with complaints of abdominal pain. We are being asked to evaluate for gallstone pancreatitis with biliary ductal dilation. She notes several episodes of
similar abdominal pain over the past year, but worsening and not resolving. Found to have elevated LFTs with a total bilirubin 4.5, AST 736, ALT 61, alk phos 165, and lipase greater than 4000 consistent with pancreatitis. Ultrasound imaging did
reveal gallstones with intrahepatic biliary ductal dilation along with mild dilation of the common bile duct concerning for choledocholithiasis. Imaging also suggestive of acute cholecystitis.
4/3 MRI with and without --
Cholelithiasis with findings suggestive of acute cholecystitis in appropriate clinical context.
Choledocholithiasis as described without significant biliary dilatation.
4/3 ERCP
Choledocholithiasis treated with biliary sphincterotomy and balloon extraction.
Problem list:
-gallstone pancreatitis
-choledocholithiasis s/p ERCP 4/3
-History of Crohn's disease on Stelara, with multiple small bowel and colonic resections, dx age 16
-History prior pancreatitis secondary to TPN
Other pertinent medical history:
-Avascular necrosis with core decompression
-Chronic anemia
Recommendations:
s/p ERCP with stone removal pain improved
for thelma today
repeat LFT's and lipase improving
NPO
family updated
discussed waiting 1 week for restart of Sterala as due this week
remains on IV Zosyn
Subjective
Subjective
Date of Service: December 03, 2023
npo for OR today, clinically minimal GERD much improved pain from admission
Objective
Data Reviewed
Laboratory Data:
Laboratory Results
Total Bilirubin 3.7 mg/dl (0.2-1.3) H 12/02/23 05:10
AST 358 U/L (14-36) H 12/02/23 05:10
ALT 386 U/L (0-35) H 12/02/23 05:10
Alkaline Phosphatase 170 U/L (38-126) H 12/02/23 05:10
Lipase 2346 U/L (23-300) H* 12/02/23 05:10
Vital Signs and I&O:
Vital Signs
Temp Pulse Resp BP Pulse Ox
97.4 F 72 18 130/77 93
12/03/23 07:00 12/03/23 07:00 12/03/23 07:00 12/03/23 07:00 12/03/23 07:00
I&O
12/02/23 12/03/23 12/04/23
06:59 06:59 06:59
Intake Total 420 / 420
Output Total 1100 / 1100
Balance -680 / -680
Physical Exam
Physical Exam
HEENT: Anicteric and Moist mucous membranes
Cardiology: Normal Sinus Rhythm
Pulmonary: Clear
GI: Soft, Non Distended and Non Tender
Extremities: No Edema
Neuro: Non Focal
[2023-12-03 09:14] LABS: % Immature Granulocytes 0.4 % (0-0.5); % Monocytes 1.3 % (1.7-9.3); % Neutrophils 87.3 % (42.2-75.2); Absolute Lymphocytes 0.6 10^3/uL (1.2-3.4); Absolute Monocytes 0.1 10^3/uL (0.1-0.6); Absolute Neutrophils 4.7 10^3/uL (1.4-6.5); Hematocrit 33.4 % (37.0-47.0); Hemoglobin 11.4 g/dL (12.0-16.0); Mean Corp Hgb Conc. 34.1 g/dL (33.0-37.0); Mean Corpuscular Hgb 29.8 pg (27.0-31.0); Mean Corpuscular Volume 87.2 fL (81.0-99.0); Mean Platelet Volume 10.6 fL (7.4-10.4); Nucleated Red Blood Cells % 0 %; Platelet Count 159 10^3/uL (130-400); Red Blood Cell Count 3.83 10^6/uL (4.20-5.40); Red Cell Dist. Width 12.9 % (11.5-14.5); White Blood Cell Count 5.4 10^3/uL (4.8-10.8)
[2023-12-03 09:28] LABS: ALT (SGPT) 301 U/L (0-35); AST (SGOT) 165 U/L (14-36); Albumin 3.5 g/dl (3.5-5.0); Alkaline Phosphatase 182 U/L (38-126); Blood Urea Nitrogen 14 mg/dl (7-17); Calcium 9.4 mg/dl (8.4-10.2); Carbon Dioxide 16 mmol/L (22-30); Chloride 104 mmol/L (98-107); Estimated Creatinine Clearance 59 ml/min; Glucose 99 mg/dl (70-99); Potassium 4.4 mmol/L (3.5-5.1); Sodium 135 mmol/L (135-145); Total Bilirubin 1.6 mg/dl (0.2-1.3); Total Protein 6.5 g/dl (6.3-8.2); eGFR > 60.00
[2023-12-03 09:49] LABS: Lipase 227 U/L (23-300)
[2023-12-03] MEDS: LR IV (10:03)
[2023-12-03] MEDS: RESTASIS 0.05% OPHTHALMIC EMULSION 1 DROPS BOTH EYES ×2 (10:14→21:11)
--- NOTE | 2023-12-03 13:43 | W.PN.UPDATE ---
Update Note
Progress Note Update
for billing purposes
--- NOTE | 2023-12-03 14:13 | W.SUR.PREOP ---
Pre-Operative Surgical Note
-
I have examined this patient prior to the performance of the scheduled procedure.
The patient's condition is unchanged from the time of the current History and
Physical and the patient is able to undergo the scheduled procedure.
--- NOTE | 2023-12-03 15:22 | CM ---
Unable to complete assessment - Pt in OR
--- NOTE | 2023-12-03 15:51 | W.IMMPOSTOP ---
Addendum entered and electronically signed by Arias Quiñones MD 12/03/23 16:01:
#[id number]
Original Note:
Surgical Immed Post Op Note
-
Primary Surgeon: Ishmael
Assisting Surgeon: Kalie CURRY
Pre-op Diagnosis: Gallstone pancreatitis, gallstones
Post-op Diagnosis: Gallstone pancreatitis, probable chronic calculus cholecystitis
Procedure Performed: Laparoscopic cholecystectomy
Anesthesia Type: GETA +0.25% Marcaine
Specimen / Cultures: Gallbladder
Estimated Blood Loss: 16 mL
Complications: None immediate
Operative Findings: Floppy gallbladder, few filmy adhesions and some chronic inflammation. Dilated cystic duct controlled with 2-0 PDS Endoloop and 2 hemoclips. Gallbladder removed intact and extracted at epigastric port site. Trocar sites
positioned around adhesions from prior surgeries, no additional adhesiolysis required for cholecystectomy.
Plan: Routine postop care. Low-fat diet as tolerated. Stop Zosyn tomorrow a.m. Likely for discharge tomorrow
[2023-12-03] MEDS: ZOFRAN 4 MG IV (16:37)
--- NOTE | 2023-12-03 17:23 | PTCARENOTE ---
pt returned from PACU aox3 LCTA on RA.
[2023-12-04] MEDS: LR 1000 IV (02:23)
[2023-12-04 02:54] VITALS: BP 127/74
[2023-12-04] MEDS: ZOSYN 50 IV (03:26)
[2023-12-04 05:37] VITALS: BMI 20.3
[2023-12-04 07:00] VITALS: BP 114/70
--- NOTE | 2023-12-04 07:07 | W.PN.HOSP.TC ---
Today's Communication/Plan
-
discharge
Assessment / Plan
Assessment / Plan
Physical exam:
General: Acutely ill
HEENT: Normocephalic, Atraumatic and Moist Mucous Membranes
Respiratory: Clear to Auscultation; Negative Wheezes, Rales or Rhonchi
Cardiac: Regular Rhythm and S1/S2
GI: Soft, non-distended, incision alas from recent lap thelma noted, mild tenderness, hyperactive bowel sounds
Musculoskeletal: No Clubbing, No Cyanosis and No Edema
Neuro: Awake, Alert and Oriented
Psych: Calm
ERCP on 12/01:
Impression: - The major papilla appeared normal.
- The common bile duct was dilated.
- Choledocholithiasis was found. Complete removal was
accomplished by biliary sphincterotomy and balloon
extraction.
- A biliary sphincterotomy was performed.
- The biliary tree was swept.
A/P:
Acute gallstone pancreatitis:
-LFT trending down and lipase back to normal.
-GI consult appreciated status post ERCP and stone extraction. See report above.
-Reviewed abdominal ultrasound MRI
-s/p lap thelma 12/02
-surgery eval appreciated, cleared to resume diet, stable for discharge
Mild metabolic acidosis:
-resolved
History of Crohn's:
-Patient on Stelara as outpatient
Mild leukocytosis likely reactive to surgery
outpt follow up with primary recommended.
DVT prophylaxis SCD
CODE STATUS
Full code
Medically stable for discharge home with outpatient follow up recommendations.
discussed with patient and her at bedside.
Total Time Preparing Discharge ___50____ minutes including examination of the patient, summary of the hospital stay, instructions for continuing care to all relevant caregivers; and preparation of discharge records, prescriptions, and referral
forms if necessary.
Anticipated Discharge: Today
Subjective/Interval History
-
Date of Service: December 04, 2023
Seen and examined at bedside in no acute distress resting comfortably in bed. Reports new onset diarrhea overnight but also reports recently being prescribed cholestryamine prior to hospitalization. Ok to use as per surgery. Patient otherwise
reports feeling well eager to go home. Denies issues with ambulation. present during evaluation.
Objective Data
-
Labs:
Laboratory Results
12/04/23
06:00
WBC Pending
Hgb Pending
Hct Pending
Plt Count Pending
Sodium Pending
Potassium Pending
Chloride Pending
Carbon Dioxide Pending
BUN Pending
Creatinine Pending
Glucose Pending
Calcium Pending
Total Bilirubin Pending
AST Pending
ALT Pending
Alkaline Phosphatase Pending
Vital Signs:
Vital Signs
Temp Pulse Resp BP Pulse Ox
98.2 F 81 18 127/74 93
12/04/23 02:54 12/04/23 02:54 12/04/23 02:54 12/04/23 02:54 12/04/23 02:54
I&O
12/03/23 12/04/23 12/05/23
06:59 06:59 06:59
Intake Total 420 / 420 2540 / 2540
Output Total 1100 / 1100 300 / 300
Balance -680 / -680 2240 / 2240
[2023-12-04] MEDS: RESTASIS 0.05% OPHTHALMIC EMULSION 1 DROPS BOTH EYES (08:02)
--- NOTE | 2023-12-04 09:02 | W.PN.GS2 ---
Addendum entered and electronically signed by Arias Quiñones MD 12/04/23 09:56:
Patient seen and examined with nurse practitioner. Agree with documented progress note.
Patient feels well today. Tolerating diet advancement. Mild postoperative incisional pain. No nausea
AFVSS
ABD: Soft, nondistended, mild tenderness to palpation at surgical sites. Surgical sites with glue dressing. No ecchymosis, no erythema, no drainage.
Assessment/plan: 68-year-old female postoperative day 1 status post lap thelma
low-fat diet/regular diet as tolerated.
Okay to DC home from surgical standpoint
outpatient follow-up with myself in 2 to 3 weeks
Original Note:
Today's Communication / Plan
-
Dispo planning
Assessment / Plan
-
Assessment: 68-year-old female who presented with gallstone mediated pancreatitis and choledocholithiasis. Gallstones also confirmed within the gallbladder on imaging studies. History of Crohn's disease with multiple laparotomies and repeat bowel
resections (ileocecectomy, resection of anastomotic stricture on 2 separate occasions most recently 2017 at outside hospital)
Status post ERCP 12/02/23
Status post Lap thelma 12/03/23
Labs pending
AFVSS
Tolerating diet
Plan:
Continue low fat diet
Analgesics prn
Ok for cholestyramine (has script at home) if diarrhea persists
Clear for d/c from surgical standpoint. D/C plan updated.
Subjective Data
-
Date of Service: December 04, 2023
Patient seen and examined at bedside with Dr. Quiñones. Denies n/v. Tolerating diet. Some incisional soreness. Passed liquid stool/diarrhea overnight.
Objective Data
-
Intake and Output
12/03/23 12/04/23 12/05/23
06:59 06:59 06:59
Intake Total 420 / 420 2540 / 2540
Output Total 1100 / 1100 300 / 300
Balance -680 / -680 2240 / 2240
Intake:
Oral fluids 120 / 120 1140 / 1140
IV fluids (Total) 300 / 300 1200 / 1200
LR 300 / 300
Normosol 100 / 100
IV piggybacks 200 / 200
Output:
Urine, Voided 1100 / 1100 300 / 300
Other:
Number of approximated MODERATE 4
amounts of urine
Number of approximated LARGE 2
amounts of urine
Number of unmeasured liquid
stools
Rectum 1
Vital Signs
Temp Pulse Resp BP Pulse Ox
98.1 F 77 18 114/70 93
12/04/23 07:00 12/04/23 07:00 12/04/23 07:00 12/04/23 07:00 12/04/23 07:00
Calcium 9.4 mg/dl (8.4-10.2) 12/03/23 08:57
Total Bilirubin 1.6 mg/dl (0.2-1.3) H D 12/03/23 08:57
AST 165 U/L (14-36) H 12/03/23 08:57
ALT 301 U/L (0-35) H 12/03/23 08:57
Alkaline Phosphatase 182 U/L (38-126) H 12/03/23 08:57
Total Protein 6.5 g/dl (6.3-8.2) 12/03/23 08:57
Albumin 3.5 g/dl (3.5-5.0) 12/03/23 08:57
Physical Exam
-
NAD
ABD soft, mild incisional tenderness, ND
Incisions well approximated, intact glue, no erythema
--- NOTE | 2023-12-04 11:49 | CM ---
Met with pt at bedside
Pt reports lives with her in a 2 story home
Independent, driving
DME - raised toilet seat
SNF/HH - denies past. Has had out-pt PT at the [facility] in past
Has ride at d/c
PCP - Dr Issa
Pharm - [facility]
Given IMM
Post op frederick 1 - thelma
CM with follow for d/c needs
Plan - anticipate home - no needs
[2023-12-04] MEDS: QUESTRAN LIGHT/PREVALITE 4 GRAMS PO (11:53)
[2023-12-04 12:16] LABS: % Basophils 0.1 % (0-2); % Immature Granulocytes 0.5 % (0-0.5); % Lymphocytes 5.7 % (20.5-51.1); % Monocytes 5.1 % (1.7-9.3); % Neutrophils 88.6 % (42.2-75.2); Absolute Immature Granulocytes 0.1 10^3/uL (0-0.05); Absolute Lymphocytes 0.8 10^3/uL (1.2-3.4); Absolute Monocytes 0.7 10^3/uL (0.1-0.6); Hemoglobin 10.5 g/dL (12.0-16.0); Mean Corp Hgb Conc. 33.9 g/dL (33.0-37.0); Mean Corpuscular Hgb 30.3 pg (27.0-31.0); Mean Corpuscular Volume 89.3 fL (81.0-99.0); Mean Platelet Volume 10.5 fL (7.4-10.4); Nucleated Red Blood Cells % 0 %; Platelet Count 236 10^3/uL (130-400); Red Blood Cell Count 3.47 10^6/uL (4.20-5.40); Red Cell Dist. Width 13.9 % (11.5-14.5); White Blood Cell Count 13.5 10^3/uL (4.8-10.8)
[2023-12-04 12:29] LABS: AST (SGOT) 86 U/L (14-36); Albumin 3.7 g/dl (3.5-5.0); Alkaline Phosphatase 150 U/L (38-126); Blood Urea Nitrogen 15 mg/dl (7-17); Calcium 9.1 mg/dl (8.4-10.2); Carbon Dioxide 27 mmol/L (22-30); Chloride 104 mmol/L (98-107); Estimated Creatinine Clearance 46 ml/min; Glucose 162 mg/dl (70-99); Potassium 3.8 mmol/L (3.5-5.1); Sodium 137 mmol/L (135-145); Total Bilirubin 0.8 mg/dl (0.2-1.3); Total Protein 6.5 g/dl (6.3-8.2); eGFR > 60.00
[2023-12-04 12:37] LABS: ALT (SGPT) 207 U/L (0-35)
--- NOTE | 2023-12-04 13:09 | W.DCSUMMARY ---
Discharge Summary
Discharge Data
Date of Admission: 12/01/23
Date of Discharge: 12/04/23
-
Pending Results: Yes
Additional Pending Results:
surgical pathology results
Hospital Course
68F HX Crohn's disease p/w Abdominal pain mostly in upper abdomen with radiation to the back. Pain different from prior Crohn flare. Acute onset 1 day duration associated with N/V, no relieving/exacerbating factors. Prior hx pancreatitis
associated with TPN, hx Bowel resection due to Crohn dz. Denied ETOH exposure. Abd US and MRI/MRCP were consistent for acute gallstone pancreatitis. ERCP on 12/01 noted major papilla appeared normal. Common bile duct was dilated.
Choledocholithiasis was found. Complete removal was accomplished by biliary sphincterotomy and balloon extraction. A biliary sphincterotomy was performed. The biliary tree was swept.
LFT trending down and lipase returned to within normal limits. Surgery then performed lap cholecystectomy 12/02, tolerated procedure well. Tolerating diet, medically stable, patient was discharged home with outpatient follow up recommendations.
Discharge Plan
-
Patient Disposition: Home (Routine Discharge)
Discharge Diagnosis/Procedures: Gallstone Pancreatitis, status post ERCP 12/02/23, Laparoscopic Cholecystectomy 12/03/23
Condition: Fair
Diet: Low Fat
Activity: No strenuous activity
Additional Activity: Do not lift more than 20 lbs for the next 2-3 weeks
Driving Restrictions: As prior to admission
Bathing Restrictions: OK to Shower
Blood Work: Please repeat CBC and CMP with your primary care provider in 1 week of discharge.
Activity Restrictions/Additional Instructions:
Please follow up with your primary care provider in 1 week of discharge and your surgeon in 2-3 weeks of discharge.
Post-Operative Instructions for Gallbladder Surgery
The incision sites are sealed with a surgical glue dressing.� It is safe to shower at any time after surgery when the glue is dry.� Let shower water run over the incisions and then pat dry.
Glue dressing typically peels off in 2-3 weeks.
Abdominal/incisional pain and discomfort, shoulder/scapular pain, bloating, and mild nausea, as well as bruising/stiffness and swelling at the incision sites are common after surgery.� If felt to be excessive, notify us.
Please start postoperative pain management using over the counter medications such as Tylenol and Ibuprofen, per instructions on the bottle, as long as there are no medical reasons why you cannot take these medications.
Ice the incisions sites for 20 minutes every hour or so to help with postoperative incisional pain and reduce postoperative surgical site swelling.� Take care NOT to get an ice burn on the skin surface.
A warm heating pad is often helpful to alleviate shoulder/scapular back pains after laparoscopic procedures.� This pain typically dissipates 24-72hrs post op.
Transition to a low fat diet as tolerated after surgery if not experiencing postoperative nausea or significant bloating/distention.� Some fatty food intolerance may occur shortly after surgery (cramps,bloating, nausea,diarrhea with fat intake).
Constipation is common following surgery and postoperative narcotic use.� May use a stool softener such as Colace (100 mg 2x day) to prevent constipation
If no BM 24hrs after surgery, recommend starting daily Miralax
If no BM in 24-48hrs after starting Miralax --> recommend then using a dose of magnesium citrate or milk of magnesia with a Senokot tablet to help alleviate post operative constipation as long as there is no nausea/vomiting and passing gas.
Resume all preoperative medications as prescribed, unless directed otherwise.
Do not drive or drink alcohol for 24 hrs after having anesthesia or while taking narcotic pain medications.
Resume regular daily light activities, such as walking, standing and going up/down stairs as tolerated within 24hrs of surgery.� Please refrain from lifting over 20 lbs or strenuous exercise until postoperative follow up visit &/or approximately
3-4 weeks.�
Call the office with a fever above 101� F, nausea with vomiting, severe abdominal pain, yellowing of skin or eyes, spreading redness and drainage from incision sites or with any concerns/questions.
If not arranged prior to surgery, please call the office to schedule or confirm your 10-14 day postoperative surgical follow-up office visit with Dr. Quiñones.
Referrals:
Lauren Rush DO [Family Provider] - in one week
Arias Quiñones MD [Active] - in two to three weeks
Prescriptions:
Continued
multivitamin with folic acid [Tab-A-Reina] 1 TABLET tablet
1 tab PO DAILY PRN (Reason: supplement)
cyanocobalamin (vitamin B-12) 1,000 mcg/mL solution
1,000 mcg SC Q2W
cyclosporine 0.05 % dropperette
1 drp BOTH EYES BID
Stelara 45 mg/0.5 mL solution
45 mg SC [id number]
ascorbic acid (vitamin C) [Vitamin C] 500 mg Tablet,Chewable
500 mg PO DAILY PRN (Reason: supplement)
biotin 1,000 mcg Tablet,Chewable
1,000 mcg PO DAILY PRN (Reason: supplement)
Discharge Orders:
Discharge Patient (As Directed); Ordered 12/04/23
Ordered By: Aydin Pimentel
Discharge Date and Time
Discharge Date/Time: 12/04/23 15:31
Print Language: PASHTO
[2023-12-04 14:30] VITALS: BP 133/85
== END 2023-12-04 15:31 | disposition home or self-care (01) | DRG 418 ==
LOC: 3 WEST ACU 23:35
PROVIDERS: Emergency Medicine; Hospitalist; Internal Medicine Gastroenterology; Surgery; ADMITTING PHYSICIAN Internal Medicine; ATTENDING PHYSICIAN Internal Medicine; CONSULT PHYSICIAN Internal Medicine Gastroenterology; CONSULT PHYSICIAN Surgery; EMERGENCY PHYSICIAN Emergency Medicine; FAMILY PHYSICIAN Internal Medicine
PROC: 0F798ZZ Dilation of Common Bile Duct, Via Natural or Artificial Opening Endoscopic (ICD-10-PCS; 2023-12-02)
PROC: BF141ZZ Fluoroscopy of Gallbladder, Bile Ducts and Pancreatic Ducts using Low Osmolar Contrast (ICD-10-PCS; 2023-12-02)
PROC: 0F7D8ZZ Dilation of Pancreatic Duct, Via Natural or Artificial Opening Endoscopic (ICD-10-PCS; 2023-12-02)
PROC: 0FCD8ZZ Extirpation of Matter from Pancreatic Duct, Via Natural or Artificial Opening Endoscopic (ICD-10-PCS; 2023-12-02)
PROC: 0FC98ZZ Extirpation of Matter from Common Bile Duct, Via Natural or Artificial Opening Endoscopic (ICD-10-PCS; 2023-12-02)
PROC: 0FT44ZZ Resection of Gallbladder, Percutaneous Endoscopic Approach (ICD-10-PCS; 2023-12-03)
DX: K85.10 Biliary acute pancreatitis without necrosis or infection (principal); E87.20 Acidosis, unspecified; K80.66 Calculus of gallbladder and bile duct with acute and chronic cholecystitis without obstruction
CPT/HCPCS: 88304; 74183; 74330; 76000; 76700; 80053; 83690; 85025; 85027; 93005; 96361; 96374; 96375; 99285; A9575; C1769

== ENCOUNTER → 2024-09-25 10:03 | Outpatient (REF) | payer MEDICARE, SELFPAY | LOC: PAVMRI 10:03 | PROVIDERS: ATTENDING PHYSICIAN Obstetrics & Gynecology; PRIMARYCARE PHYSICIAN Internal Medicine | DX: M54.12 Radiculopathy, cervical region (principal) | CPT/HCPCS: 72141 ==